=== PATIENT | male | born 1960 | race Caucasian/White ===

== ENCOUNTER 2022-04-11 03:55 | Inpatient (IN) | payer OTHER ==
--- NOTE | 2022-04-10 23:15 | NUR ---
ROUNDS PRN MEDICATION GIVEN FOR PAIN WAS EFFECTIVE, PATIENT SLEEPING SOUNDLY. NO SIGNS OF RESPIRATORY DISTRESS. CALL LIGHT WITHIN REACH. Addendum: 04/13/22 at 0144 by Celina Landa RN RN NOTE INTENDED FOR DIFFERENT TIME
[~2022-04-11] VITALS: Ht 180.3 cm; Wt 103.0 kg
[2022-04-11 04:17] VITALS: BP_SYST 170
--- NOTE | 2022-04-11 04:40 | NUR ---
MD Allred at bedside.
--- NOTE | 2022-04-11 04:45 | NUR ---
Patient presents to ER with severe stomach pain stating that pain started yesterday night around 11pm. Patient thought it could be controlled with rest and laying down, but pain was too severe to handle. Pain feels like s sharp burning sensation in the lower right quadrant and radiats to umbilicus and left side. rhoda is unable to sit down or lay down due to pain. Blood p[ressure slightly elevated, but hayde states his blood pressure is usually lower, but states he is in severe pain and stresa due to personal issues at home. all other systems WNL and no concerns noted/complained about.
[2022-04-11] MEDS ORDERED: KETOROLAC TROMETHAMINE 30 MG VIAL IVP ONE ×2 (05:00→12:15)
--- NOTE | 2022-04-11 05:29 | NUR ---
US at bedside
--- NOTE | 2022-04-11 06:07 | NUR ---
Patient taken to CT scan ambulatory.
--- NOTE | 2022-04-11 06:25 | NUR ---
# 20 gauge angiocath placed to L HAND. Use of asceptic technique. Opsite placed over site. Blood return noted. Flushed with 10 cc of normal saline. No evidence of infiltration noted. Patient tolerated well.
[2022-04-11 06:27] LABS: BASOPHILS % (AUTO) 0.2 % (0.0-2.0); HEMATOCRIT 42.2 % (36-54); HEMOGLOBIN 14.4 g/dL (14.0-18.0); LYMPHOCYTES # (AUTO) 0.9 K/uL (1.0-5.5); MEAN CORPUSCULAR HEMOGLOBIN 30 pg (27-31); MEAN CORPUSCULAR HGB CONC 34 % (32-36); MEAN CORPUSCULAR VOLUME 88 fL (79.0-98.0); MONOCYTES # (AUTO) 1.1 K/uL (0.0-1.0); MONOCYTES % (AUTO) 5.3 % (1.7-9.3); NEUTROPHILS # (AUTO) 19.1 K/uL (1.8-7.7); NEUTROPHILS % (AUTO) 90.5 % (40.0-70.0); RED BLOOD CELL COUNT(AUTO) 4.81 MIL/uL (4.2-6.2); RED CELL DISTRIBUTION WIDTH 14.2 % (9.0-15.0); WHITE BLOOD COUNT (AUTO) 21.1 K/uL (4.8-10.8)
[2022-04-11 06:46] LABS: PLATELET COUNT (AUTO) 212 K/uL (130-430)
[2022-04-11 09:22] LABS: BILIRUBIN,URINE NEGATIVE (NEGATIVE); CLARITY/URINE CLEAR (CLEAR); COLOR,URINE YELLOW (YELLOW); GLUCOSE,URINE NEGATIVE (NEGATIVE); KETONES,URINE TRACE (NEGATIVE); LEUKOCYTE ESTERASE ,URINE NEGATIVE (NEGATIVE); NITRITE, URINE NEGATIVE (NEGATIVE); PH,URINE 6.5 (5.0-8.0); PROTEIN URINE TRACE (NEGATIVE); UROBILINOGEN,URINE 0.2 (0.2-1.0)
[2022-04-11 09:32] LABS: BLOOD, URINE TRACE (NEGATIVE)
[2022-04-11 09:38] LABS: BACTERIA,URINE RARE /HPF (None Seen); MUCUS,URINE 1+ /LPF (None Seen); RBC,URINE 0-3 /HPF (0-3); WBC,URINE 0-3 /HPF (0-3)
[2022-04-11] MEDS ORDERED: MAGNESIUM CITRATE 300 ML ORAL SOLUTION PO ONE (11:15)
[2022-04-11] MEDS ORDERED: BISACODYL 5 MG TABLET.DR (DULCOLAX) PO ONE (12:00)
[2022-04-11] MEDS ORDERED: KETOROLAC TROMETHAMINE 30 MG VIAL ONE (12:13)
[2022-04-11] MEDS ORDERED: PIPERACILLIN/TAZO 3.375 GM in NS 50 ML IV ONE (12:45)
--- NOTE | 2022-04-11 12:49 | NUR ---
PT TO BE ADMITTED TO M/S. RECEIVED CALL BY DR. SMITH, NEW ORDERS RECEIVED AND PLACED CPOE. PT REPORTS NOT HAVING A BM AND REQUESTS LAXATIVE. DULCOLAX PO GIVEN. PT KEPT NPO AFTER DULCOLAX. INFORMED PT, VERBALIZED UNDERSTANDING. VSS, AFEBRILE. WILL CONT TO MONITOR.
--- NOTE | 2022-04-11 12:51 | NUR ---
Note undone in [facility] - 04/11/22 at 1433 by [email or web address] Admit bed requested Patient will be admitted to care of Admitted to unit. Diagnosis Inpatient (Yes or No) Observation (Yes or No) Orientation concerns or request close to nursing station (Yes or No) Covid Status On vent or bipap Isolation requirements Needs a sitter From Home (Yes or if No enter name of facility) Requires Dialysis (Yes or No) Med Rec Completed (Yes of No) Addendum: 04/11/22 at 1430 by [email or web address] Amendment undone in [facility] - 04/11/22 at 1433 by [email or web address] Admit bed requested Patient will be admitted to care of . Admitted to unit. MED/SURG Diagnosis CHOLECYSTITIS, LEUKOCYTOSIS Inpatient (Yes or No) NO Observation (Yes or No) NO Orientation concerns or request close to nursing station (Yes or No) NO Covid Status NEGATIVE On vent or bipap NO Isolation requirements NO Needs a sitter NO From Home (Yes or if No enter name of facility) YES Requires Dialysis (Yes or No) NO Med Rec Completed (Yes of No) YES
[2022-04-11 13:14] LABS: ANION GAP 9 (5-15); CHLORIDE 105 mmol/L (98-107); GLUCOSE 140 mg/dL (70-99)
[2022-04-11 13:15] LABS: ALANINE AMINOTRANSFERASE 52 U/L (12-78); ALBUMIN 4.2 g/dL (3.4-4.8); ASPARTATE AMINOTRANSFERASE 36 U/L (10-37); CALCIUM 8.9 mg/dL (8.4-11.0); GFR AFRICAN AMERICAN 98 mL/min (>90); TOTAL BILIRUBIN 0.7 mg/dL (0.0-1.0); UREA NITROGEN, BLOOD 16 mg/dL (8-21)
[2022-04-11 13:16] LABS: LIPASE 60 U/L (73-393)
[2022-04-11] MEDS ORDERED: PIPERACILLIN/TAZOBACTAM 3.375 GM/VIAL (ZOSYN) IV ONE (13:45)
[2022-04-11] MEDS ORDERED: MORPHINE 2 MG/ML INJ. SYRINGE IVP PRN (13:45)
[2022-04-11] MEDS ORDERED: OMEP-393 PO (14:29)
--- NOTE | 2022-04-11 14:29 | NUR ---
Note shanayola in EDM - 04/11/22 at 1433 by [email or web address] Admit bed requested Patient will be admitted to care of . Admitted to unit. Diagnosis Inpatient (Yes or No) Observation (Yes or No) Orientation concerns or request close to nursing station (Yes or No) Covid Status On vent or bipap Isolation requirements Needs a sitter From Home (Yes or if No enter name of facility) Requires Dialysis (Yes or No) Med Rec Completed (Yes of No)
--- NOTE | 2022-04-11 14:34 | NUR ---
Admit bed requested Patient will be admitted to care of . Admitted to [] unit. Diagnosis [] Inpatient (Yes or No) [] Observation (Yes or No) [] Orientation concerns or request close to nursing station (Yes or No) [] Covid Status [] On vent or bipap [] Isolation requirements [] Needs a sitter [] From Home (Yes or if No enter name of facility) [] Requires Dialysis (Yes or No) [] Med Rec Completed (Yes of No) [] Addendum: 04/11/22 at 1435 by [email or web address] Admit bed requested Patient will be admitted to care of ]. Admitted to [MED/SURG] unit. Diagnosis [CHOLECYSTITIS, LEUKOCYTOSIS] Inpatient (Yes or No) [YES] Observation (Yes or No) [NO] Orientation concerns or request close to nursing station (Yes or No) [NO] Covid Status [NEGATIVE] On vent or bipap [NO] Isolation requirements [NO] Needs a sitter [NO] From Home (Yes or if No enter name of facility) [YES] Requires Dialysis (Yes or No) [NO] Med Rec Completed (Yes of No) [YES]
[2022-04-11] MEDS: D5/0.45 NS 1,000 ML IV SCH (15:00)
--- NOTE | 2022-04-11 15:37 | NUR ---
ADMISSION NOTE Received patient from ER via douglas, received report from Angelo THOMAS. Patient admitted with diagnosis of Cholecystitis. Patient oriented to hospital routine, call light, toileting and safety-patient verbalized his understanding. Call light within reach.
--- NOTE | 2022-04-11 15:53 | NUR ---
PT TRANSFERED TO ROOM 124B. NAD NOTED. CONDITION STABLE AT TRANSFER. REPORT CALLED TO WILLIAM CAO.
[2022-04-11 16:05] VITALS: BP_SYST 121
--- NOTE | 2022-04-11 19:15 | NUR ---
OPENING NOTES Patient resting in bed no s/s pain or distress noted. respirations even and unlabored head of bed elevated. IV site patent no s/s redness infection infiltration. bed locked and in lowest position call light in reach bed alarm on.
--- NOTE | 2022-04-11 19:31 | NUR ---
CLOSING NOTE Pt resting quietly in bed with no s/s resp distress, no c/o pain or discomfort. IVF infusing well to left hand at ordered rate with no s/s infiltration to site. Endorsed care to film processing shift supervisor nurse. Needs met, call light within reach.
[2022-04-11 20:00] VITALS: BP_SYST 134
[2022-04-11] MEDS: PIPERACILLIN/TAZO 3.375/DEX-IS 50 ML IV SCH (21:20)
--- NOTE | 2022-04-11 21:34 | NUR ---
CONSULTATION CALLED FOR DR. VASQUEZ FOR CONSULT OF CHOLECYSTITIS ORDER BY DR. SMITH SPOKE WITH SAWYER
--- NOTE | 2022-04-11 21:38 | NUR ---
CONSULTATION CALLED FOR MERT GUERRA FOR CONSULT OF CHOLECYSTITIS ORDER BY DR. SMITH SPOKE WITH SAWYER
[2022-04-12 00:33] VITALS: BP_SYST 146
[2022-04-12] MEDS: ONDANSETRON HCL 4 MG/2 ML VIAL IVP PRN ×2 (03:17→21:42)
[2022-04-12] MEDS: PIPERACILLIN/TAZO 3.375/DEX-IS 50 ML IV SCH ×4 (03:18→21:46)
--- NOTE | 2022-04-12 05:00 | NUR ---
patient at approximately 0300 wanted an enema paged dr. chicas stated ok at 0500 asked patient if they wanted the tap water enema said no due to stress of rapid response happening to his roommate wanted to sleep said they wanted it done in morning
[2022-04-12 07:47] LABS: ALBUMIN 3.3 g/dL (3.4-4.8); CALCIUM 8.3 mg/dL (8.4-11.0); CREATININE 0.95 mg/dL (0.55-1.30); TOTAL BILIRUBIN 1.6 mg/dL (0.0-1.0)
[2022-04-12 08:00] VITALS: BP_SYST 136
--- NOTE | 2022-04-12 08:00 | NUR ---
OPENING NOTE PT IN BED, RESPIRATIONS EVEN, REGULAR, AND NON-LABORED. C/O ABDOMINAL PAIN (12/06). IV RUNNING ORDERED. IV SITE REMAIN PATENT AND INTACT. SAFETY PRECAUTION IN PLACED. ENCOURAGED TO USE CALL LIGHT FOR ASSISTANCE. WILL CONTINUE TO MONITOR
--- NOTE | 2022-04-12 08:30 | NUR ---
ENEMA PROVIDED TAP WATER ENEMA. NO EFFECTIVE RESULT.
--- NOTE | 2022-04-12 09:55 | NUR ---
RECEIVED LAXATIVES ORDER RECEIVED ONCE TIME MIRALAX ORDER.
[2022-04-12] MEDS ORDERED: POLYETHYLENE GLYCOL 3350, 17 GM/ POWD.PACK PO ONE ×2 (10:00→13:00)
[2022-04-12] MEDS: D5/0.45 NS 1,000 ML IV SCH (10:18)
--- NOTE | 2022-04-12 10:20 | NUR ---
AT BEDSIDE DR. VASQUEZ AT BEDSIDE, ASSESSING PATIENT. RECEIVED NEW ORDER
[2022-04-12 12:00] VITALS: BP_SYST 125
[2022-04-12] MEDS ORDERED: DOCUSATE SODIUM 100 MG CAPSULE PO ONE (13:00)
[2022-04-12] MEDS ORDERED: MAGNESIUM CITRATE 300 ML ORAL SOLUTION PO ONE (13:00)
--- NOTE | 2022-04-12 14:15 | NUR ---
NOTE RECEIVED NEW ORDER FOR PAIN MEDICATION PER PT'S REQUEST.
[2022-04-12 14:17] LABS: BASOPHILS # (AUTO) 0.1 K/uL (0.0-0.2); BASOPHILS % (AUTO) 0.4 % (0.0-2.0); EOSINOPHILS # (AUTO) 0.1 K/uL (0.0-0.4); EOSINOPHILS % (AUTO) 0.2 % (0.0-4.0); HEMATOCRIT 40.3 % (36-54); HEMOGLOBIN 13.7 g/dL (14.0-18.0); LYMPHOCYTES % (AUTO) 4.8 % (20.5-51.5); MEAN CORPUSCULAR HEMOGLOBIN 30 pg (27-31); MEAN CORPUSCULAR HGB CONC 34 % (32-36); MEAN CORPUSCULAR VOLUME 88 fL (79.0-98.0); MONOCYTES % (AUTO) 9.1 % (1.7-9.3); NEUTROPHILS # (AUTO) 18.5 K/uL (1.8-7.7); NEUTROPHILS % (AUTO) 85.5 % (40.0-70.0); PLATELET COUNT (AUTO) 186 K/uL (130-430); RED BLOOD CELL COUNT(AUTO) 4.58 MIL/uL (4.2-6.2); RED CELL DISTRIBUTION WIDTH 14.4 % (9.0-15.0); WHITE BLOOD COUNT (AUTO) 21.6 K/uL (4.8-10.8)
--- NOTE | 2022-04-12 16:30 | NUR ---
HIDA SCAN PT WAS PICKED UP FOR HIDA SCAN.
[2022-04-12] MEDS: MINERAL OIL 30 ML UDC PO SCH ×2 (18:00→23:12)
--- NOTE | 2022-04-12 19:00 | NUR ---
PT CAME BACK FROM HIDA SCAN
--- NOTE | 2022-04-12 19:20 | NUR ---
CLOSING NOTE PT IN BED, RESPIRATIONS EVEN, REGULAR, AND NON-LABORED. DENIES ACUTE DISTRESS. CONNECTED IVF TO PT ORDERED. IV SITE REMAIN PATENT AND INTACT. SAFETY PRECAUTION IN PLACED. ENDORSED SIEBEL ARCHITECT TO GIVE HIDA REPORT TO DR. VASQUEZ IF THE REPORT IS DONE. ENDORSED CARE
[2022-04-12] MEDS ORDERED: ACETAMINOPHEN 325 MG TABLET PO PRN (19:30)
[2022-04-12 19:35] VITALS: BP_SYST 125
--- NOTE | 2022-04-12 19:35 | NUR ---
INITIAL NOTE AT INITIAL ASSESSMENT, PATIENT IS RESTING IN BED, STABLE, NO SIGNS OF RESPIRATORY DISTRESS. PATIENT VERBALIZES TOLERABLE PAIN. PLAN OF CARE FOR THE EVENING IS COMMUNICATED WITH THE PATIENT. PATIENT SUCCESSFULLY DEMONSTRATES CORRECT USAGE OF CALL LIGHT AT THIS TIME. BED IS LOCKED, AND AT THE LOWEST LEVEL. FALL, SAFETY, AND ASPIRATION PRECAUTIONS WILL BE IN PLACE THROUGHOUT THE SHIFT.
[2022-04-12] MEDS: POLYETHYLENE GLYCOL 3350, 17 GM/ POWD.PACK PO SCH ×2 (21:00→21:30)
--- NOTE | 2022-04-12 21:25 | NUR ---
COMMUNICATION W/ DR. MAHESH ARAGON CALLED AT THIS TIME. VERBALIZED THAT SINCE HE RECEIVED NEWS THAT PATIENT'S HIDA SCAN RESULTS ARE POSITIVE, HE WOULD LIKE TO SCHEDULE PATIENT FOR MRI MRCP ON THURSDAY, MD ALSO ORDERED CMP FOR THE AM. ALL ORDERS READ BACK AND VERIFIED.
[2022-04-12] MEDS: DOCUSATE SODIUM 100 MG CAPSULE PO SCH (21:29)
[2022-04-12] MEDS: KETOROLAC TROMETHAMINE 30 MG VIAL IVP PRN (21:50)
--- NOTE | 2022-04-12 21:50 | NUR ---
PAIN NOTE PRN MEDICATION GIVEN FOR PATIENT'S COMPLAINT OF SEVERE PAIN. WILL REASSESS.
--- NOTE | 2022-04-12 22:30 | NUR ---
ROUNDS PRN MEDICATION GIVEN FOR PAIN WAS EFFECTIVE, PATIENT SLEEPING SOUNDLY. NO SIGNS OF RESPIRATORY DISTRESS. CALL LIGHT WITHIN REACH.
[2022-04-13] VITALS: BP_SYST 123
--- NOTE | 2022-04-13 00:55 | NUR ---
MINERAL OIL ADMINISTERED SCHEDULED MINERAL OIL GIVEN TO PATIENT, HE TOLERATED WELL. STILL NO GAS OR BOWEL MOVEMENTS.
[2022-04-13] MEDS: PIPERACILLIN/TAZO 3.375/DEX-IS 50 ML IV SCH ×4 (01:00→20:25)
--- NOTE | 2022-04-13 03:45 | NUR ---
ROUNDS PATIENT IS SLEEPING, STABLE, NO SIGNS OF RESPIRATORY DISTRESS. CALL LIGHT WITHIN REACH.
--- NOTE | 2022-04-13 04:30 | NUR ---
PATIENT HAD LARGE BOWEL MOVEMENT PATIENT WAS ABLE TO HAVE A LARGE, LOOSE BOWEL MOVEMENT, BOWEL SOUNDS ARE NOW VERY AUDIBLE. WILL CONTINUE TO MONITOR CLOSELY.
--- NOTE | 2022-04-13 06:00 | NUR ---
CLOSING NOTE PATIENT HAD ONE LARGE LOOSE BM, BOWEL SOUNDS ARE VERY AUDIBLE NOW, HE IS ALSO NOW PASSING GAS. PATIENT SLEPT WELL THROUGHOUT THE NIGHT, HE VERBALIZED THAT PRN MEDICATION GIVEN TO HIM FOR HIS HEARTBURN AND ABDOMINAL PAIN WAS EFFECTIVE. AT THIS TIME, HE IS STABLE, NO SIGNS OF RESPIRATORY DISTRESS. CALL LIGHT WITHIN REACH. BED IS LOCKED, AND AT THE LOWEST LEVEL. FALL AND SAFETY PRECAUTIONS HAVE BEEN IN PLACE THROUGHOUT THE SHIFT. WILL CONTINUE TO MONITOR UNTIL REPORT IS GIVEN AT BEDSIDE TO AM NURSE.
[2022-04-13] MEDS: MINERAL OIL 30 ML UDC PO SCH ×4 (06:37→23:29)
[2022-04-13] MEDS: ONDANSETRON HCL 4 MG/2 ML VIAL IVP PRN ×3 (06:37→20:26)
[2022-04-13] MEDS: D5/0.45 NS 1,000 ML IV SCH ×2 (06:38→23:29)
[2022-04-13] MEDS: KETOROLAC TROMETHAMINE 30 MG VIAL IVP PRN ×2 (06:42→20:26)
--- NOTE | 2022-04-13 07:30 | NUR ---
OPENING NOTE PT IN BED, RESPIRATIONS EVEN, REGULAR, AND NON-LABORED. DENIES ACUTE DISTRESS, PAIN, OR SHORTNESS OF BREATH. IVF RUNNING ORDERED. IV SITE REMAIN PATENT AND INTACT. NO S/S OF INFILTRATION OR INFECTION NOTED. SAFETY PRECAUTION IN PLACED. WILL CONTINUE TO MONITOR.
[2022-04-13 07:49] LABS: ALBUMIN 2.8 g/dL (3.4-4.8); CALCIUM 8.1 mg/dL (8.4-11.0); CREATININE 1.12 mg/dL (0.55-1.30); TOTAL BILIRUBIN 1.3 mg/dL (0.0-1.0)
[2022-04-13 08:00] VITALS: BP_SYST 124
--- NOTE | 2022-04-13 08:59 | NUR ---
RECEIVED NEW ORDERS OKAY TO HAVE CLEAR ENSURE AND HEMORRHOIDAL OINTMENT PER DR. SMITH
[2022-04-13] MEDS ORDERED: PHENYLEPH/MINERAL OIL/PETROLAT 57 GM OINT.APPL TP SCH (09:00)
[2022-04-13] MEDS ORDERED: PHENYLEPH/MINERAL OIL/PETROLAT 57 GM OINT.APPL TP PRN (09:02)
[2022-04-13] MEDS: POLYETHYLENE GLYCOL 3350, 17 GM/ POWD.PACK PO SCH ×2 (10:07→20:26)
[2022-04-13] MEDS: DOCUSATE SODIUM 100 MG CAPSULE PO SCH ×2 (10:07→20:26)
--- NOTE | 2022-04-13 11:16 | NUR ---
Dietitian Recommendations * Clear liquid diet per MD order, provide Ensure Clear ONS TID (Ensure Clear TID provides 720 Kcals, 24 gm protein), goal diet may be low fat or regular as tolerated * Encourage PO intake as tolerated Please refer to nutrition assessment for details. PS, RD
--- NOTE | 2022-04-13 11:40 | NUR ---
OBTAINED CONSENT FORM OBTAINED CONSENT FORM FOR MRI.
[2022-04-13 12:00] VITALS: BP_SYST 122
--- NOTE | 2022-04-13 12:15 | NUR ---
ROUND AT BEDSIDE, ASSESSING PATIENT.
[2022-04-13 13:36] LABS: BASOPHILS % (AUTO) 0.3 % (0.0-2.0); EOSINOPHILS # (AUTO) 0.3 K/uL (0.0-0.4); EOSINOPHILS % (AUTO) 1.7 % (0.0-4.0); HEMATOCRIT 38.2 % (36-54); LYMPHOCYTES # (AUTO) 0.9 K/uL (1.0-5.5); LYMPHOCYTES % (AUTO) 5.4 % (20.5-51.5); MEAN CORPUSCULAR HEMOGLOBIN 30 pg (27-31); MEAN CORPUSCULAR HGB CONC 34 % (32-36); MEAN CORPUSCULAR VOLUME 88 fL (79.0-98.0); MONOCYTES # (AUTO) 1.4 K/uL (0.0-1.0); MONOCYTES % (AUTO) 8.4 % (1.7-9.3); NEUTROPHILS # (AUTO) 14.1 K/uL (1.8-7.7); NEUTROPHILS % (AUTO) 84.2 % (40.0-70.0); PLATELET COUNT (AUTO) 160 K/uL (130-430); RED BLOOD CELL COUNT(AUTO) 4.34 MIL/uL (4.2-6.2); RED CELL DISTRIBUTION WIDTH 14.3 % (9.0-15.0); WHITE BLOOD COUNT (AUTO) 16.8 K/uL (4.8-10.8)
--- NOTE | 2022-04-13 14:20 | NUR ---
NOTES PT RESTING IN BED. DENIES PAIN OR DISCOMFORT. PT VERBALIZES HE HAD SMALL BM. ADMINISTERED ATB IVPB, PT TOLERATED WELL. IV SITE REMAIN PATENT AND INTACT. PROVIDED COMFORT AND QUIET ENVIRONMENT PER PT REQUEST. WILL CONTINUE TO MONITOR.
[2022-04-13 16:00] VITALS: BP_SYST 131
--- NOTE | 2022-04-13 17:00 | NUR ---
2-3 SMALL BOWEL MOVEMENT PT DENIES PAIN OR DISCOMFORT. IV RUNNING ORDERED. SAFETY PRECAUTION IN PLACED.
--- NOTE | 2022-04-13 18:30 | NUR ---
JASMEET SMITH FOR MINERAL OIL ENEMA. OKAY TO GIVE MINERAL OIL ENEMA PER DR. SMITH.
--- NOTE | 2022-04-13 19:13 | NUR ---
CLOSING NOTE PT IN BED, RESPIRATIONS EVEN, REGULAR, AND NON-LABORED. DENIES ACUTE DISTRESS, PAIN, OR SHORTNESS OF BREATH. IVF ONGOING ORDERED. IV SITE REMAIN PATENT AND INTACT. NO S/S OF INFILTRATION OR INFECTION NOTED. SAFETY PRECAUTION IN PLACED. ENDORSED TO MOLDED GOODS CONTROLS OPERATOR NURSE THAT PT HAS MRCP MRI TOMORROW AND NEEDS NPO STATUS ONCE SCHEDULE IS SET UP. ENDORSED CARE TO NEXT SHIFT NURSE.
[2022-04-13] MEDS ORDERED: MINERAL OIL 133 ML ENEMA RC ONE (19:30)
[2022-04-13 20:00] VITALS: BP_SYST 126
[2022-04-14] VITALS: BP_SYST 120
[2022-04-14] MEDS: PIPERACILLIN/TAZO 3.375/DEX-IS 50 ML IV SCH ×4 (02:20→20:25)
--- NOTE | 2022-04-14 03:15 | NUR ---
transfer of care from nadia THOMAS
[2022-04-14] MEDS: MINERAL OIL 30 ML UDC PO SCH (06:00)
[2022-04-14 07:22] LABS: BASOPHILS % (AUTO) 0.2 % (0.0-2.0); EOSINOPHILS # (AUTO) 0.3 K/uL (0.0-0.4); EOSINOPHILS % (AUTO) 1.5 % (0.0-4.0); HEMATOCRIT 36.8 % (36-54); HEMOGLOBIN 12.9 g/dL (14.0-18.0); LYMPHOCYTES # (AUTO) 0.7 K/uL (1.0-5.5); LYMPHOCYTES % (AUTO) 4.3 % (20.5-51.5); MEAN CORPUSCULAR HEMOGLOBIN 30 pg (27-31); MEAN CORPUSCULAR HGB CONC 35 % (32-36); MEAN CORPUSCULAR VOLUME 86 fL (79.0-98.0); MONOCYTES # (AUTO) 1.6 K/uL (0.0-1.0); MONOCYTES % (AUTO) 9.1 % (1.7-9.3); NEUTROPHILS # (AUTO) 14.4 K/uL (1.8-7.7); NEUTROPHILS % (AUTO) 84.9 % (40.0-70.0); PLATELET COUNT (AUTO) 173 K/uL (130-430); RED BLOOD CELL COUNT(AUTO) 4.27 MIL/uL (4.2-6.2); RED CELL DISTRIBUTION WIDTH 14.2 % (9.0-15.0)
--- NOTE | 2022-04-14 07:33 | NUR ---
CLOSING NOTES Patient resting in bed - no s/s pain or distress noted. Respirations even and unlabored - head of bed elevated. IV site patent - no s/s redness, infection, or infiltration. Bed locked and in lowest position.
--- NOTE | 2022-04-14 07:40 | NUR ---
recd from PACU on room air awake and alert not in resp distress no pain, abd dressing 4 ports intact with JOHN drain in place. VSS IVF running. due IV ABX given. and IV zofran.
[2022-04-14 08:00] VITALS: BP_SYST 145
--- NOTE | 2022-04-14 08:00 | NUR ---
Initial Notes Patient is AOx4. No s.s of acute distress noted. Patient denies pain. Breathing is even and nonlabored, on room air. Vital signs obtained as documented. NO SOB noted. Patient is ambulatory. IVF running, IV patent. Safety precautions in place and call light within reach.
[2022-04-14 08:07] LABS: ALBUMIN 2.8 g/dL (3.4-4.8); CREATININE 0.95 mg/dL (0.55-1.30); TOTAL BILIRUBIN 1.2 mg/dL (0.0-1.0)
[2022-04-14] MEDS: POLYETHYLENE GLYCOL 3350, 17 GM/ POWD.PACK PO SCH ×2 (08:57→22:40)
[2022-04-14] MEDS: DOCUSATE SODIUM 100 MG CAPSULE PO SCH ×2 (08:58→22:40)
--- NOTE | 2022-04-14 08:58 | NUR ---
Notes Patient declined his Colace and Miralax because he states Dr. Flores stated that he should have a suppository instead of oral laxatives. There are no orders for suppositories. Patient has been informed. Patient is upset and states that the MD told him that that is what he should be getting. Educated patient that medications can not be given without an order. Patient asked to speak to charge nurse. Notified transcription manager nurse.
[2022-04-14] MEDS: ONDANSETRON HCL 4 MG/2 ML VIAL IVP PRN ×3 (09:30→20:20)
[2022-04-14] MEDS ORDERED: BISACODYL 10 MG/SUPPOSITORY RC ONE (09:30)
--- NOTE | 2022-04-14 10:19 | NUR ---
transfer of care Patient is stable at this time. On room air, no distress noted. Denies pain. IVF running, Iv patent. Report given to WILLIAM Mckeon.
--- NOTE | 2022-04-14 10:30 | NUR ---
assumed care of Mr Sullivan
--- NOTE | 2022-04-14 12:30 | NUR ---
Mr Nate has declined ordered suppository. He states that he feels like the laxative he has taken previously have "done their job". He has returned from [facility]. He has been reconnected to IVF. He denies pain at this time.
--- NOTE | 2022-04-14 14:25 | NUR ---
CONSULTATION PAGED/CALLED Reason for Consultation: []sepsis Person Who was Notified: []Agapito Consulting Physician: [] Colt Veloz Accounts Payable Analyst Specialty: []Infectious Ordering Physician: []Dr. Ly
[2022-04-14 14:56] VITALS: BP_SYST 128
[2022-04-14 15:33] LABS: INR 1.1 (0.80-1.20); PROTHROMBIN TIME 11.5 SECS (9.5-12.5)
[2022-04-14] MEDS ORDERED: BUPIVACAINE /PF 0.5% 30 ML VIAL INJ ONE (16:00)
[2022-04-14] MEDS ORDERED: PROPOFOL 200MG/ 20ML VIAL (DIPRIVAN) IV ONE (16:00)
[2022-04-14] MEDS ORDERED: ONDANSETRON HCL 4 MG/2 ML VIAL IVP ONE (16:00)
[2022-04-14] MEDS ORDERED: ROCURONIUM BROMIDE 10 MG/ML (ZEMURON) IV ONE (16:00)
[2022-04-14] MEDS ORDERED: MIDAZOLAM HCL 5 MG/5 ML VIAL IVP ONE (16:00)
[2022-04-14] MEDS ORDERED: LR 1,000 ML IV.SOLN IV ONE (16:00)
[2022-04-14] MEDS ORDERED: NS IRRIG SOLN 1000 ML IR ONE (16:00)
[2022-04-14] MEDS ORDERED: SEVOFLURANE 15 MIN GAS INH ONE (16:00)
[2022-04-14] MEDS ORDERED: KETOROLAC TROMETHAMINE 30 MG VIAL IVP ONE (16:00)
[2022-04-14] MEDS ORDERED: NS 1000 ML IV.SOLN IV ONE (16:00)
[2022-04-14] MEDS ORDERED: fentaNYL CITRATE/PF 100 MCG/2 ML AMP IVP ONE (16:00)
--- NOTE | 2022-04-14 16:00 | NUR ---
Mr Sullivan has been taken to OR. He is compliant with the plan to have surgery and has no s/s of distress or discomfort at this time
[2022-04-14] MEDS ORDERED: METOCLOPRAMIDE HCL 10 MG/2 ML VIAL IVP PRN (17:00)
[2022-04-14] MEDS ORDERED: ONDANSETRON HCL 4 MG/2 ML VIAL IVP PRN (17:00)
[2022-04-14] MEDS ORDERED: fentaNYL CITRATE/PF 100 MCG/2 ML AMP IVP PRN ×2 (17:00)
[2022-04-14 18:02] VITALS: BP_SYST 128
[2022-04-14] MEDS: fentaNYL CITRATE/PF 100 MCG/2 ML AMP ONE ×2 (18:30→18:32)
[2022-04-14] MEDS ORDERED: ACETAMINOPHEN 325 MG TABLET PO PRN (18:30)
[2022-04-14] MEDS ORDERED: NALOXONE HCL 0.4 MG/ML AMP (NARCAN) IVP PRN (18:30)
--- NOTE | 2022-04-14 18:30 | NUR ---
hand off has been given to Pinky
[2022-04-14 20:00] VITALS: BP_SYST 134
[2022-04-14] MEDS ORDERED: HYDROcodone/ACETAMIN 5-325 MG TAB (NORCO/ VICODIN) PO PRN (20:00)
[2022-04-14] MEDS: D5/0.45 NS 1,000 ML IV SCH (20:22)
[2022-04-14] MEDS: HYDROmorphone 1 MG/ML INJ. CARTRIDGE IVP PRN (20:26)
[2022-04-14 22:44] VITALS: BP_SYST 134
[2022-04-15] VITALS (8 sets, daily range): BP systolic 114–137
[2022-04-15] MEDS: PIPERACILLIN/TAZO 3.375/DEX-IS 50 ML IV SCH ×4 (01:18→21:08)
[2022-04-15] MEDS: KETOROLAC TROMETHAMINE 15 MG VIAL IVP PRN ×3 (01:19→21:42)
[2022-04-15] MEDS: ONDANSETRON HCL 4 MG/2 ML VIAL IVP PRN ×3 (01:19→21:42)
--- NOTE | 2022-04-15 01:30 | NUR ---
IV Toradol given and IV ZOfran
--- NOTE | 2022-04-15 02:30 | NUR ---
IV Dilaudid given a requested.
[2022-04-15] MEDS: HYDROmorphone 1 MG/ML INJ. CARTRIDGE IVP PRN (02:32)
--- NOTE | 2022-04-15 06:00 | NUR ---
IS given and instructed, ambulated to bathroom tolerated no dizziness, sat at edge of bed, Voids 1x to bathroom and walk around the room. VSS JOHN drain-80ml bloody.
[2022-04-15] MEDS: D5/0.45 NS 1,000 ML IV SCH ×2 (06:13→17:24)
[2022-04-15 07:37] LABS: BASOPHILS % (AUTO) 0.2 % (0.0-2.0); EOSINOPHILS # (AUTO) 0.1 K/uL (0.0-0.4); EOSINOPHILS % (AUTO) 1.2 % (0.0-4.0); HEMATOCRIT 35.3 % (36-54); HEMOGLOBIN 12.1 g/dL (14.0-18.0); LYMPHOCYTES # (AUTO) 1.2 K/uL (1.0-5.5); MEAN CORPUSCULAR HEMOGLOBIN 30 pg (27-31); MEAN CORPUSCULAR HGB CONC 34 % (32-36); MEAN CORPUSCULAR VOLUME 87 fL (79.0-98.0); MONOCYTES # (AUTO) 1.1 K/uL (0.0-1.0); MONOCYTES % (AUTO) 9.2 % (1.7-9.3); NEUTROPHILS # (AUTO) 9.6 K/uL (1.8-7.7); NEUTROPHILS % (AUTO) 79.4 % (40.0-70.0); PLATELET COUNT (AUTO) 195 K/uL (130-430); RED BLOOD CELL COUNT(AUTO) 4.05 MIL/uL (4.2-6.2); RED CELL DISTRIBUTION WIDTH 13.9 % (9.0-15.0); WHITE BLOOD COUNT (AUTO) 12.1 K/uL (4.8-10.8)
[2022-04-15 08:06] LABS: ALBUMIN 2.4 g/dL (3.4-4.8); CALCIUM 7.8 mg/dL (8.4-11.0); CREATININE 0.98 mg/dL (0.55-1.30); TOTAL BILIRUBIN 0.8 mg/dL (0.0-1.0)
--- NOTE | 2022-04-15 08:09 | NUR ---
REPORT RECEIVED FROM ARGON TESTER RN FOR CONTINUITY OF CARE. PATIENT STABLE CONDITION.
[2022-04-15] MEDS: MINERAL OIL 30 ML UDC PO SCH (09:14)
[2022-04-15] MEDS: DOCUSATE SODIUM 100 MG CAPSULE PO SCH ×2 (09:14→21:08)
[2022-04-15] MEDS: POLYETHYLENE GLYCOL 3350, 17 GM/ POWD.PACK PO SCH ×2 (09:21→21:08)
--- NOTE | 2022-04-15 10:44 | NUR ---
PATIENT WAS SEEN FOR EVALUATION. HE WAS ABLE TO AMBULATE AROUND BOTH NURSING UNITS PUSHING THE IV POLE. INDEPENDENT. NO NEED FOR FURTHER PHYSICAL THERAPY. INFORMED RN. NURSING TO ENCOURAGE FREQUENT AMBULATION.
--- NOTE | 2022-04-15 17:25 | NUR ---
Patient resting and ambulating throughout the day.
--- NOTE | 2022-04-15 19:21 | NUR ---
Report given to hourly shift manager RN for continuity of care. Patient stable condition.
--- NOTE | 2022-04-15 19:50 | NUR ---
S/B Dr Flores for rounds advised cont IV antibiotic advance diet and d/c IVF, spoke to patient and JOHN drain output seen.
--- NOTE | 2022-04-15 22:00 | NUR ---
ambulated around the unit uneventful VSS cont care. Pain meds given before bedtime.
[2022-04-16] VITALS: BP_SYST 118
[2022-04-16] MEDS: PIPERACILLIN/TAZO 3.375/DEX-IS 50 ML IV SCH ×4 (02:12→21:04)
[2022-04-16 04:00] VITALS: BP_SYST 122
[2022-04-16 06:50] LABS: BASOPHILS % (AUTO) 0.3 % (0.0-2.0); EOSINOPHILS # (AUTO) 0.3 K/uL (0.0-0.4); EOSINOPHILS % (AUTO) 2.9 % (0.0-4.0); HEMATOCRIT 38.8 % (36-54); HEMOGLOBIN 12.8 g/dL (14.0-18.0); LYMPHOCYTES # (AUTO) 1.5 K/uL (1.0-5.5); LYMPHOCYTES % (AUTO) 12.6 % (20.5-51.5); MEAN CORPUSCULAR HEMOGLOBIN 29 pg (27-31); MEAN CORPUSCULAR HGB CONC 33 % (32-36); MEAN CORPUSCULAR VOLUME 87 fL (79.0-98.0); MONOCYTES # (AUTO) 1.1 K/uL (0.0-1.0); MONOCYTES % (AUTO) 9.3 % (1.7-9.3); NEUTROPHILS # (AUTO) 8.9 K/uL (1.8-7.7); NEUTROPHILS % (AUTO) 74.9 % (40.0-70.0); PLATELET COUNT (AUTO) 258 K/uL (130-430); RED BLOOD CELL COUNT(AUTO) 4.44 MIL/uL (4.2-6.2); RED CELL DISTRIBUTION WIDTH 14.2 % (9.0-15.0); WHITE BLOOD COUNT (AUTO) 11.8 K/uL (4.8-10.8)
[2022-04-16 06:54] LABS: CALCIUM 8.4 mg/dL (8.4-11.0); CREATININE 1.06 mg/dL (0.55-1.30)
[2022-04-16 08:00] VITALS: BP_SYST 136
--- NOTE | 2022-04-16 08:00 | NUR ---
Initial Notes Patient is AOX4. Ambulatory with steady gait. No s.s of distress noted. Breathing is even and nonlabored, on room air. Patient states feel nauseous. RN aware, RN to administer Zofran IVP. Patient denies SOB. Patient states mild pain, tolerable. Does not request pain medication. Safety precautions in place and call light within reach.
[2022-04-16] MEDS: ONDANSETRON HCL 4 MG/2 ML VIAL IVP PRN (08:29)
[2022-04-16] MEDS: MINERAL OIL 30 ML UDC PO SCH ×2 (09:00→09:53)
[2022-04-16] MEDS: POLYETHYLENE GLYCOL 3350, 17 GM/ POWD.PACK PO SCH ×3 (09:00→21:02)
[2022-04-16] MEDS: DOCUSATE SODIUM 100 MG CAPSULE PO SCH ×3 (09:00→21:01)
--- NOTE | 2022-04-16 12:00 | NUR ---
Notes patient is eating lunch. No change in assessment. Patient is stable. Call light within reach and safety precautions in place.
[2022-04-16] MEDS ORDERED: LIP40 PO (12:13)
[2022-04-16] MEDS ORDERED: ATORVASTATIN 20 MG TABLET PO ONE (12:15)
[2022-04-16 12:31] VITALS: BP_SYST 119
--- NOTE | 2022-04-16 16:00 | NUR ---
Notes Patient states feels numbness of right lower extremity. MD notified. New orders received. Patient denies severe pain, tolerable. Does not request pain medication. Patient states will ambulate in hallway. Gait steady. Safety precautions in place and call light within reach.
--- NOTE | 2022-04-16 16:24 | NUR ---
NEUROLOGIST CONSULT DR BANKS STAMPING OPERATOR FOR DR Sudha PAK WAS NOTIFIED THRU EXCHANGE, SPOKE TO CHRIS AND MADE AWARE RE-NUMBNESS RIGHT THIGH.
[2022-04-16 16:26] VITALS: BP_SYST 117
--- NOTE | 2022-04-16 19:00 | NUR ---
Closing Notes Patient is eating dinner. No s.s of distress noted. Breathing is even and nonlabored, on room air. Patient denies severe pain. IV patent. Patient is stable. All needs met. Endorsed care to WILLIAM Humphrey.
--- NOTE | 2022-04-16 19:11 | NUR ---
Nutrition F/U Admitting Diagnosis cholecystitis, leukocytosis Reviewed Pertinent Medical/Surgical Hx Medical Record, Patient Medical History Comment: Per EMR review, PHM of HLD. Presented w/ complaint of abdominal pain; per MD note: abdominal pain, constipation, leukocytosis. HIDA scan completed 04/13/22 positive, found w/gallstones. Laparoscopic cholecystectomy completed 04/14/22. 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 Subjective Information Seam Stay Stitcher rounded to pt bedside, pt A/O at time of visit. Pt was upset w/ breakfast meal tray and attested to receiving food that I cant eat including Frisian toast and sausage C/W inappropriate diet order record in EMR. Regular diet was sent at breakfast, however was changed to low fat diet at lunch. Seam Stay Stitcher noted that pt appeared anxious about eating and pt felt unsure if correct meal trays were being brought to him, however Seam Stay Stitcher confirmed w/ pt that Low Fat diet is the active and correct diet order. Pt attested to constant nausea causing decreased appetite, however pt tries eat whatever I can get down to help me feel better. Per EMR review, average PO intake 68.75% x 4 meals. Pt requested Ensure High Protein at each meal just in case I dont want to eat the food provided on meal trays. Pt attested to unusual stool for the past 2 months and stated that it feels packed in his lower abdominal area. LBM 04/16/22 w/ mostly liquid stool. CBW 246 via bedscale unsure of accuracy d/t bedscale wt not being properly calibrated. Pt disagreed w/ bedscale wt and attested to wt of 218 upon admission. Current Diet Order/Nutrition Support Low Fat diet x 0 days NEW Pertinent Medications Miralax/Colace pt refused, Zofran Pertinent Labs Na 143 WNL, K 3.9 WNL, BG 98 WNL improving, WBC 11.8 H Height 511 Weight (Pounds) 220 pounds steady wt maintained since admission. Weight (Calculated Kilograms) 99.961334 kilograms Patient Weight 99.79 kg Body Mass Index 30.68 kg/m2 %IBW 128 [place]/Adjusted Body Weight 172# (78.2 Kg) Weight Status Obese NEW Skin Integrity Comment: Dylan score 22 on 04/16/22 at 0800. Abd incision 04/16. NEW Estimated Energy Expenditure (kcals/day) 6212-5254 (30-35kcal/kg IBW d/t obesity, Sx healing) NEW Estimated Protein Required (g/day) 94-117 (1.2-1.5g/kg IBW d/t obesity, Sx healing) NEW Estimated Fluid Required (l/day) 2.3-2.7 (30-35ml/kg IBW d/t obesity, Sx healing) NEW Problem/Etiology/Signs/Symptoms Increased energy needs R/T metabolic demands AEB estimated nutritional needs for Sx healing. Inadequate protein-energy intake R/T acuity of illness AEB NPO/clear liquid diet day 2 with plan for procedure (HIDA scan). (Initial) RESOLVED Expected Outcomes/Goals Monitor diet progress, tolerance of PO diet with goal of patient consuming >85% of estimated nutrition needs, nutrition-related labs trending within acceptable range, normal GI function and skin integrity Dietitian Recommendations * Low Fat diet, Ensure TID, Bart BID (supplements yield 1230kcal/day, 65g protein/day) * Encourage PO intake as tolerated Follow Up Mod Risk: F/U in 3-5days Follow Up By Apr 21, 2022 Alert Not Indicated
--- NOTE | 2022-04-16 19:58 | NUR ---
Dietitian Recommendations * Low Fat diet, Ensure TID, Bart BID (supplements yield 1230kcal/day, 65g protein/day) * Encourage PO intake as tolerated Please refer to nutrition F/U for details, thanks! CC, MPH, RDN
[2022-04-16 20:00] VITALS: BP_SYST 134
--- NOTE | 2022-04-16 20:00 | NUR ---
RECEIVED PATIENT IN BED, A/O X 4 , S/P LAP STEPHANIE WITH JOHN DRAIN , SITE INTACT, ABD IS SOFT , NO C/O PAIN AT THIS TIME, LEFT UPPER LEG NUMBNESS PER PATIENT , ABLE TO WALK.
--- NOTE | 2022-04-16 22:26 | NUR ---
PATIENT WALKING ON THE HALLWAY , NO C/O PAIN AT THIS TIME.
[2022-04-17] VITALS: BP_SYST 125
[2022-04-17] MEDS: PIPERACILLIN/TAZO 3.375/DEX-IS 50 ML IV SCH ×5 (01:39→20:19)
--- NOTE | 2022-04-17 05:59 | NUR ---
PATIENT IS VERY WORRIED ABOUT HIS LEFT UPPER LEG NUMBNESS, MD AWARE , U/S ORDERED YESTERDAY , WILL ENDORSE TO DAY SHIFT NURSE .
[2022-04-17 06:19] LABS: BASOPHILS # (AUTO) 0.1 K/uL (0.0-0.2); BASOPHILS % (AUTO) 0.5 % (0.0-2.0); EOSINOPHILS # (AUTO) 0.3 K/uL (0.0-0.4); EOSINOPHILS % (AUTO) 2.8 % (0.0-4.0); HEMOGLOBIN 12.7 g/dL (14.0-18.0); LYMPHOCYTES # (AUTO) 1.4 K/uL (1.0-5.5); LYMPHOCYTES % (AUTO) 12.2 % (20.5-51.5); MEAN CORPUSCULAR HEMOGLOBIN 30 pg (27-31); MEAN CORPUSCULAR HGB CONC 34 % (32-36); MEAN CORPUSCULAR VOLUME 87 fL (79.0-98.0); MONOCYTES # (AUTO) 0.8 K/uL (0.0-1.0); MONOCYTES % (AUTO) 7.5 % (1.7-9.3); NEUTROPHILS # (AUTO) 8.6 K/uL (1.8-7.7); PLATELET COUNT (AUTO) 260 K/uL (130-430); RED BLOOD CELL COUNT(AUTO) 4.26 MIL/uL (4.2-6.2); RED CELL DISTRIBUTION WIDTH 14.3 % (9.0-15.0); WHITE BLOOD COUNT (AUTO) 11.1 K/uL (4.8-10.8)
[2022-04-17] MEDS: ONDANSETRON HCL 4 MG/2 ML VIAL IVP PRN (06:53)
--- NOTE | 2022-04-17 07:29 | NUR ---
computer is down at 0330 , patient refused dilaudid - wasted with another RN, signed at paper -hospital offered.. toradol 15 mg ivp given as ordered.
[2022-04-17 07:34] LABS: CALCIUM 8.3 mg/dL (8.4-11.0); CREATININE 1.07 mg/dL (0.55-1.30)
[2022-04-17 08:00] VITALS: BP_SYST 133
--- NOTE | 2022-04-17 08:00 | NUR ---
RECEIVED REPORT FROM PM NURSE, PATIENT RESTING IN BED, AAO x4, RESPIRATIONS EVEN AND UL ON RA. DENIES PAIN/DISCOMFORT. VSS STABLE. JOHN DRAIN TO R ABD, DRAINING SMALL AMOUNT SEROSANGUINIOUS FLUID. PT C/O TINGLING TO R UPPER THIGH, PENDING U/S VENOUS BLE THIS MORNING. PULSES PALPABLE, NO EDEMA/REDNESS NOTED TO BLE. ABLE TO WIGGLE TOES, NO SCDS'S APPLIED, PATIENT IS AMBULATORY. CALL LIGHT IN REACH, SAFETY MEASURES IN PLACE.
[2022-04-17 08:13] LABS: TOTAL BILIRUBIN 0.5 mg/dL (0.0-1.0)
[2022-04-17] MEDS: DOCUSATE SODIUM 100 MG CAPSULE PO SCH ×2 (08:24→20:19)
[2022-04-17] MEDS: POLYETHYLENE GLYCOL 3350, 17 GM/ POWD.PACK PO SCH ×2 (08:25→20:19)
[2022-04-17] MEDS: ATORVASTATIN 20 MG TABLET PO SCH (08:25)
[2022-04-17] MEDS: MINERAL OIL 30 ML UDC PO SCH (08:25)
[2022-04-17] MEDS ORDERED: ATORVASTATIN 20 MG TABLET PO SCH (09:00)
--- NOTE | 2022-04-17 11:55 | NUR ---
1155 HAIR ROOTING MACHINE OPERATOR CALLED WITH PRELIMINARY RESULTS OF U/S VENOUS BLE- POSITIVE FOR THROMBUS BILAT. DR. SMITH CALLED AND NOTIFIED, RECEIVED NEW ORDER FOR [facility], PHARMACY TO DOSE.
[2022-04-17 12:00] VITALS: BP_SYST 127
[2022-04-17] MEDS ORDERED: *LOVENOX 1MG/KG Q12H/PHARMACY XX ONE ×2 (12:15→12:45)
[2022-04-17] MEDS ORDERED: ENOXAPARIN SODIUM 100 MG/ML SYRINGE SUBCUT ONE (12:15)
[2022-04-17] MEDS ORDERED: *LOVENOX 1MG/KG Q12H/PHARMACY XX PRN (12:45)
[2022-04-17] MEDS ORDERED: GABAPENTIN 300 MG CAPSULE PO PRN (13:30)
--- NOTE | 2022-04-17 14:16 | NUR ---
PER PATIENT, HE IS C/O NOT SEEING THE DOCTOR DURING HIS HOSPITAL STAY AND C/O NOT SEEING DR. SMITH. ASSURED PATIENT THAT HE WILL SEE THE DOCTOR OR ABRASIVE COATING MACHINE OPERATOR TODAY WHEN THEY ARE DOING ROUNDS. CRTTS SHWETHA AWARE. DR. SMITH CALLED AND AWARE, STATES THAT CHRISTELLE ABRASIVE COATING MACHINE OPERATOR WILL SEE THE PATIENT TODAY. DR. SMITH AWARE OF VENOUS U/S BLE RESULTS. NO NEW ORDERS AT THIS TIME.
[2022-04-17 18:23] VITALS: BP_SYST 123
--- NOTE | 2022-04-17 18:28 | NUR ---
PATIENT RESTING IN BED, AAO x4. DENIES PAIN/DISCOMFORT. RESPIRATIONS EVEN AND UL ON RA. DR. VASQUEZ AND YG THOMAS AT BEDSIDE. MS AWARE OF PT VENOUS U/S RESULTS AND IS ADDRESSING PT CONCERNS AND ANSWERING ALL QUESTIONS. DR. VASQUEZ CALLED DR. SMITH FOR HEMATOLOGY CONSULT. HEMATOLOGY CONSULT ORDERED. PAGED DR. CABRERA, REPRESENTATIVE PHLEBOTOMY SERVICES. PUDDLER HELPER ZENY AWARE OF PT REQUEST TO SPEAK TO HER. PER DR. VASQUEZ, PATIENT WILL CONTINUE TO HAVE JOHN DRAIN TO ABD FOR NOW. JOHN DRAINING SMALL AMOUNT OF SEROSANGUINEOUS FLUID, 20ML NOTED THROUGHOUT SHIFT. ALL NEEDS MET AT THIS TIME. WILL ENDORSE TO PM NURSE FOR CONTINUITY OF CARE. Addendum: 04/17/22 at 1949 by [facility], WILLIAM RN ERROR IS AWARE OF PT VENOUS U/S RESULTS AND IS ADDRESSING PT CONCERNS AND ANSWERING ALL QUESTIONS. DR. VASQUEZ CALLED DR. SMITH FOR HEMATOLOGY CONSULT. HEMATOLOGY CONSULT ORDERED. PAGED DR. CABRERA, REPRESENTATIVE PHLEBOTOMY SERVICES. PUDDLER HELPER ZENY AWARE OF PT REQUEST TO SPEAK TO HER. PER DR. VASQUEZ, PATIENT WILL CONTINUE TO HAVE JOHN DRAIN TO ABD FOR NOW. JOHN DRAINING SMALL AMOUNT OF SEROSANGUINEOUS FLUID, 20ML NOTED THROUGHOUT SHIFT. ALL NEEDS MET AT THIS TIME. WILL ENDORSE TO PM NURSE FOR CONTINUITY OF CARE.
--- NOTE | 2022-04-17 19:15 | NUR ---
PATIENT RESTING IN BED, AAO x4, DENIES PAIN/DISCOMFORT AT THIS TIME. RESPIRATIONS EVEN AND UL ON RA. ALL NEEDS MET AT THIS TIME. REPORT GIVEN TO PM NURSE FOR CONTINUITY OF CARE.
[2022-04-17 20:00] VITALS: BP_SYST 128
--- NOTE | 2022-04-17 20:00 | NUR ---
RECEIVED PATIENT IN BED, A/O X 4 , NO DISTRESS NOTED. BILATERAL LEG DVT ON LOVENOX TX. NO DISTRESS NOTED. PATIENT IS ANXIOUS ABOUT HIS DVT, EDUCATION GIVEN ,VERBALLY UNDERSTAND. NO C/O PAIN AT THIS TIME.
[2022-04-17] MEDS ORDERED: ENOXAPARIN SODIUM 100 MG/ML SYRINGE SUBCUT SCH (21:00)
[2022-04-18] MEDS: PIPERACILLIN/TAZO 3.375/DEX-IS 50 ML IV SCH ×3 (00:40→21:22)
[2022-04-18] MEDS: ONDANSETRON HCL 4 MG/2 ML VIAL IVP PRN (00:40)
[2022-04-18 00:50] VITALS: BP_SYST 122
--- NOTE | 2022-04-18 01:24 | NUR ---
IV AT LEFT HAND IS OUT, INSERTED A NEW IV AT THE SAME HAND WITH 24 G NEEDLE WITH GOOD BLOOD RETURN. START IV ZOSYN INFUSING. NEEDS MET.
--- NOTE | 2022-04-18 01:29 | NUR ---
C/O ABD PAIN 01/05 , DILAUDID 1 MG AND ZOFRAN 4 MG IVP GIVEN ORDERED PER PATIENT'S REQUEST. WILL CONTINUE TO MONITOR.
--- NOTE | 2022-04-18 06:51 | NUR ---
PATIENT REQUEST TO BE WEIGH NOW, 227 LBS ON THE BED SCALE. WILL ENDORSE DAILY NURSE TO CALL PHARMACY FOR MEDICATION.
[2022-04-18 06:53] LABS: CALCIUM 8.6 mg/dL (8.4-11.0); CREATININE 1.11 mg/dL (0.55-1.30)
[2022-04-18 06:56] LABS: BASOPHILS # (AUTO) 0.1 K/uL (0.0-0.2); BASOPHILS % (AUTO) 0.7 % (0.0-2.0); EOSINOPHILS # (AUTO) 0.3 K/uL (0.0-0.4); EOSINOPHILS % (AUTO) 2.4 % (0.0-4.0); HEMATOCRIT 38.1 % (36-54); LYMPHOCYTES # (AUTO) 1.6 K/uL (1.0-5.5); LYMPHOCYTES % (AUTO) 14.4 % (20.5-51.5); MEAN CORPUSCULAR HEMOGLOBIN 30 pg (27-31); MEAN CORPUSCULAR HGB CONC 34 % (32-36); MEAN CORPUSCULAR VOLUME 88 fL (79.0-98.0); MONOCYTES # (AUTO) 1.2 K/uL (0.0-1.0); MONOCYTES % (AUTO) 10.4 % (1.7-9.3); NEUTROPHILS % (AUTO) 72.1 % (40.0-70.0); PLATELET COUNT (AUTO) 284 K/uL (130-430); RED BLOOD CELL COUNT(AUTO) 4.35 MIL/uL (4.2-6.2); RED CELL DISTRIBUTION WIDTH 14.1 % (9.0-15.0); WHITE BLOOD COUNT (AUTO) 11.1 K/uL (4.8-10.8)
[2022-04-18 08:00] VITALS: BP_SYST 133
--- NOTE | 2022-04-18 09:40 | NUR ---
MEDIA PRODUCTION SUPPORT MANAGER ACSTodd Bourgeois responded to a request for Social Service from WILLIAM Hackett who shared patient was requesting Document Control Assistant for Advance Directive ACSW met with patient at bedside. Patient was awake, alert orientedx4. ACSW completed introductions, provided business card and patient was open to contact. Patient also informed ACSW his sister was on speaker phone as well. ACSW provided patient with Turkish copy of Advanced Directive. Patient and sister on the phone shared 2 of his sisters would like to act as POA if ever needed. ACSW provided brief explanation of documented completion including patient should be of "sound mind" when expressing wishes, and need for 2 witness signatures. Patient and family expressed their understanding and denied needing additional Social Work support at this time. ACSW will continue to be available as needed Addendum: 04/18/22 at 1232 by Christelle Hernandez [facility] [place] Bourgeois responded to an additional request for Social Work from assigned WILLIAM Crenshaw on behalf of patient. BRENDAN Bourgeois met with patient at bedside. Patient expressed wanting to file a compliant. ACSW encouraged patient to discuss nursing specific concerns with campus ambassador to support report. ACS also provided contact info for protozoology teacher Kimi. Patient also requested information regarding to discharge, ACSW provided name of Director of Case Management Alysia and contact info. ACSW consulted with Director of Case Management, Director Bolden, and campus ambassador Chona to inform them of patient's request to speak with them. ACSW will continue to be available as needed
[2022-04-18] MEDS: POLYETHYLENE GLYCOL 3350, 17 GM/ POWD.PACK PO SCH ×2 (10:13→21:22)
[2022-04-18] MEDS: DOCUSATE SODIUM 100 MG CAPSULE PO SCH ×2 (10:14→21:22)
[2022-04-18] MEDS: ATORVASTATIN 20 MG TABLET PO SCH (10:14)
[2022-04-18] MEDS: MINERAL OIL 30 ML UDC PO SCH (10:14)
--- NOTE | 2022-04-18 10:54 | NUR ---
NOTES: Dr. Moya seen pt. for consult per nurse Stone
[2022-04-18] MEDS: RIVAROXABAN 15 MG TABLET PO SCH ×2 (11:25→17:19)
[2022-04-18 12:00] VITALS: BP_SYST 130
[2022-04-18 16:00] VITALS: BP_SYST 122
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
[2022-04-18 19:00] VITALS: BP_SYST 128
[2022-04-18 20:00] VITALS: BP_SYST 125
[2022-04-19] VITALS: BP_SYST 128
[2022-04-19] MEDS: PIPERACILLIN/TAZO 3.375/DEX-IS 50 ML IV SCH ×3 (02:03→14:24)
[2022-04-19 05:39] VITALS: BP_SYST 126
--- NOTE | 2022-04-19 06:44 | NUR ---
Patient stable this shift, denies any pain or discomfort, though he has concerns about the IV antibiotics, he wants to have ORAL because he verbalized he is tired if being "PRICKED" TO PLACE A LINE. All his questions and concerns were addressed this shift. He is stable , vitals within normal,to endorse to oncoming shift for continuity of care
--- NOTE | 2022-04-19 07:25 | NUR ---
During bedside report pt requesting to know when will he be discharged.
--- NOTE | 2022-04-19 07:45 | NUR ---
Notified charge nurse that patient is requesting to know when will he be discharged.
--- NOTE | 2022-04-19 07:50 | NUR ---
Notified patient that charge nurse is aware of his desire to know when will he be discharged. Updated patient that charge nurse will being working on his paper work soon so that the process can run quicker for when the doctor arrives.
[2022-04-19 08:00] VITALS: BP_SYST 114
[2022-04-19] MEDS: RIVAROXABAN 15 MG TABLET PO SCH (09:18)
[2022-04-19] MEDS: MINERAL OIL 30 ML UDC PO SCH (09:18)
[2022-04-19] MEDS: DOCUSATE SODIUM 100 MG CAPSULE PO SCH (09:18)
[2022-04-19] MEDS: POLYETHYLENE GLYCOL 3350, 17 GM/ POWD.PACK PO SCH (09:18)
[2022-04-19] MEDS: ATORVASTATIN 20 MG TABLET PO SCH (09:18)
[2022-04-19 12:57] VITALS: BP_SYST 127
[2022-04-19 13:48] VITALS: BP_SYST 127
[2022-04-19] MEDS ORDERED: LEVAQUIN PO (14:02)
[2022-04-19] MEDS ORDERED: METR-154 PO (14:03)
[2022-04-19] MEDS ORDERED: RIVA15TA PO (14:04)
--- NOTE | 2022-04-19 15:38 | NUR ---
Discharge instructions provided with the ability for patient to ask questions. Covering Nurse Practitioner present during discharge teaching. Pt verbalized understanding d/c instructions and is aware he is to [employer]et [employer] 3 discharge medications from his provided pharmacy [facility] and that he needs to set up f/u appointments with 3 different doctors at least by Thursday to f/u with in 7-10 business days. The names and numbers for all 3 providers given in d/c instructions and outlined. D/c'd IV catheter. Catheter tip intact. Gauze and tape applied. Pt tolerated well. Female family member acting as private ride home. Pt taken out by wheelchair; however, recently visualized pt ambulating with a steady gait. All personal belongings taken with patient as well.
[2022-04-23 17:06] LABS: PROTEIN S ACTIVITY 139 % (63-140)
== END 2022-04-19 15:45 | disposition home or self-care (01) | DRG 710 ==
LOC: SED 03:55 → SMU 13:34
PROVIDERS: ADMIT Internal Medicine; ATTEND Internal Medicine
PROC: 0DNU4ZZ Release Omentum, Percutaneous Endoscopic Approach (ICD-10-PCS; 2022-04-14)
PROC: 3E1M48Z Irrigation of Peritoneal Cavity using Irrigating Substance, Percutaneous Endoscopic Approach (ICD-10-PCS; 2022-04-14)
PROC: 0WQF4ZZ Repair Abdominal Wall, Percutaneous Endoscopic Approach (ICD-10-PCS; 2022-04-14)
PROC: 0WPFX0Z Removal of Drainage Device from Abdominal Wall, External Approach (ICD-10-PCS; 2022-04-14)
PROC: 0FT44ZZ Resection of Gallbladder, Percutaneous Endoscopic Approach (ICD-10-PCS; principal; 2022-04-14 16:00)
DX: A41.9 Sepsis, unspecified organism (principal); I82.403 Acute embolism and thrombosis of unspecified deep veins of lower extremity, bilateral; K82.1 Hydrops of gallbladder; K82.A1 Gangrene of gallbladder in cholecystitis; K80.01 Calculus of gallbladder with acute cholecystitis with obstruction; K42.9 Umbilical hernia without obstruction or gangrene; K59.00 Constipation, unspecified; M54.16 Radiculopathy, lumbar region; E78.5 Hyperlipidemia, unspecified; K66.0 Peritoneal adhesions (postprocedural) (postinfection); Z20.822 Contact with and (suspected) exposure to COVID-19; Z88.8 Allergy status to other drugs, medicaments and biological substances
CPT/HCPCS: 36415; 71045; 72110; 74181; 76376; 76700-TC; 78226; 80048; 80053; 80061; 81000; 81403; 81407; 81479; 83690; 84484; 85025; 85306; 85610-TC; 87040; 87070; 87070-TC; 87075-TC; 88302; 88304; 93005; 93970; 94010; 94760; 96374; 96375; 99285; A9537; C1727; J1170; J1650; J1885; J2250; J2405; J2543; J2704; J3010; J3490; J7030; J7060; J7120